=== PATIENT | male | born 1980 | race Caucasian/White ===

== ENCOUNTER 2022-10-23 16:01 | Observation (INO) | payer MEDICAID, OTHER ==
[2022-10-23] MEDS ORDERED: Ampicillin/Sulbactam Na 3 GM in Sodium Chloride 0.9% 100 ML IV ONE (17:49)
[2022-10-23] MEDS ORDERED: fentaNYL 50 MCG/ML SDV IVPUSH ONE (18:06)
[2022-10-23] MEDS ORDERED: Ondansetron 4 MG/2 ML SDV IVPUSH ONE (18:06)
[2022-10-23 19:23] LABS: CORONAVIRUS COVID-19 NAA NEGATIVE (NEGATIVE)
[2022-10-23] MEDS ORDERED: Ondansetron 4 MG/2 ML SDV IVPUSH PRN (19:51)
[2022-10-23] MEDS: Dextrose 5%-Lactated Ringers 1,000 ML IV SCH (20:13)
[2022-10-23] MEDS: Ampicillin/Sulbactam Na 3 GM in Sodium Chloride 0.9% 100 ML IV SCH (23:48)
[2022-10-24] MEDS: Dextrose 5%-Lactated Ringers 1,000 ML IV SCH ×3 (04:37→10:23)
[2022-10-24] MEDS: Ampicillin/Sulbactam Na 3 GM in Sodium Chloride 0.9% 100 ML IV SCH ×3 (05:38→17:09)
[2022-10-24] MEDS ORDERED: Bupivacaine 0.5%/EPINEPHrine 1:200,000 50 ML MDV ONE (06:51)
[2022-10-24] MEDS ORDERED: Rocuronium 50 MG/5 ML Vial ONE (07:13)
[2022-10-24] MEDS ORDERED: Glycopyrrolate 0.2 MG/ML 5 ML MDV ONE (07:13)
[2022-10-24] MEDS ORDERED: Succinylcholine 200 MG/10 ML MDV ONE (07:13)
[2022-10-24] MEDS ORDERED: Neostigmine Methylsulfate 1 MG/ML 5 ML Syringe ONE (07:13)
[2022-10-24] MEDS ORDERED: Dexamethasone 4 MG/ML SDV ONE (07:13)
[2022-10-24] MEDS ORDERED: Propofol 200 MG/20 ML SDV ONE (07:13)
[2022-10-24] MEDS ORDERED: Ondansetron 4 MG/2 ML SDV ONE (07:13)
[2022-10-24] MEDS ORDERED: fentaNYL 250 MCG/5 ML SDV ONE (07:15)
[2022-10-24] MEDS ORDERED: Ketamine 500 MG/5 ML MDV IV SCH (08:30)
[2022-10-24] MEDS ORDERED: Ketamine 18 MG in Sodium Chloride 0.9% 19.82 ML IV SCH (08:30)
[2022-10-24] MEDS ORDERED: Ropivacaine 50 ML, dexAMETHasone 8 MG, EPINEPHrine 0.4 MG, Sodium Chloride 0.9% 27.6 ML NERVRT SCH ×4 (08:30)
[2022-10-24] MEDS ORDERED: fentaNYL 100 MCG/2 ML SDV ONE (08:47)
[2022-10-24] MEDS ORDERED: hydrOXYzine HCL 100 MG/2 ML SDV IM ONE (09:31)
[2022-10-24] MEDS ORDERED: fentaNYL 50 MCG/ML SDV IVPUSH ONE (09:32)
[2022-10-24] MEDS ORDERED: Dextrose 5%-Lactated Ringers 1,000 ML IV SCH (10:45)
[2022-10-24] MEDS: HYDROmorphone 1 MG/ML Syringe IVPUSH PRN ×3 (11:54→20:27)
[2022-10-24] MEDS ORDERED: Ketorolac 30 MG/ML SDV IM ONE (14:45)
[2022-10-24] MEDS: Acetaminophen 500 MG Tab PO SCH ×2 (15:57→21:16)
[2022-10-25] MEDS: Ampicillin/Sulbactam Na 3 GM in Sodium Chloride 0.9% 100 ML IV SCH ×2 (00:02→05:04)
[2022-10-25] MEDS: HYDROmorphone 1 MG/ML Syringe IVPUSH PRN ×2 (02:17→07:50)
[2022-10-25] MEDS: Ibuprofen 600 MG Tab PO SCH ×2 (03:44→09:13)
[2022-10-25] MEDS: Acetaminophen 500 MG Tab PO SCH ×2 (03:45→09:13)
[2022-10-25 07:38] VITALS: BP 105/56; PULSE 42
[2022-10-25] MEDS ORDERED: HYDROmorphone 2 MG Tab PO PRN (07:56)
== END 2022-10-25 11:41 | disposition home or self-care (01) ==
LOC: JP.ED 16:01 → JP.MS 17:52
PROVIDERS: ADMIT Surgery; ATTEND Surgery
DX: K35.80 Unspecified acute appendicitis (principal); K21.9 Gastro-esophageal reflux disease without esophagitis; E66.9 Obesity, unspecified; Z79.899 Other long term (current) drug therapy; Z98.890 Other specified postprocedural states; Z20.822 Contact with and (suspected) exposure to COVID-19
CPT/HCPCS: 0241U; 36415; 74176; 80048; 85025; 87070; 87075; 87077; 87186; 87205; 88302; 96361; 96365; 96366; 96367; 96372; 96375; 96376; 99284; 99285-25; A9270-GY; G0378; J0171; J0295; J0330; J1100; J1170; J1885; J2405; J2704; J2710; J2795; J3010; J3410; J3490; J7121

== ENCOUNTER 2023-08-27 07:40 | Day surgery (SDC) | payer MEDICAID ==
[2023-08-27] MEDS ORDERED: Midazolam 1 MG/ML 2 ML SDV ONE (09:59)
[2023-08-27] MEDS ORDERED: fentaNYL 100 MCG/2 ML SDV ONE (09:59)
[2023-08-27] MEDS ORDERED: Propofol 200 MG/20 ML SDV ONE (09:59)
[2023-08-27] MEDS ORDERED: Lactated Ringers 1,000 ML IV SCH (10:30)
[2023-08-27 11:20] VITALS: BP 114/59; PULSE 61
== END 2023-08-27 11:20 | disposition home or self-care (01) ==
LOC: JP.SDS 07:40
PROVIDERS: ATTEND Student in an Organized Health Care Education/Training Program
DX: K29.50 Unspecified chronic gastritis without bleeding (principal); K21.00 Gastro-esophageal reflux disease with esophagitis, without bleeding; K29.80 Duodenitis without bleeding; K25.7 Chronic gastric ulcer without hemorrhage or perforation; I10 Essential (primary) hypertension; Z88.8 Allergy status to other drugs, medicaments and biological substances
CPT/HCPCS: 88305; 88312; 88341; 88342; J2250; J2704; J3010; J7120